=== PATIENT | female | born 1945 | race Caucasian/White ===

== ENCOUNTER 2021-02-14 11:51 | Outpatient (CLI) | payer MEDICARE, BC, SELFPAY ==
--- NOTE | 2021-02-14 12:00 | XR_ITS ---
WS: [id number] KNEE LEFT TECHNIQUE: 3 views of the left knee CLINICAL INFORMATION: KNEE JOINT PAIN, LEFT COMPARISON: None. FINDINGS: Osteopenia. Mild degenerative arthritis medial and lateral joint compartments with mild hypertrophic changes along the joint line. Advanced degenerative narrowing at the patellofemoral articulation. Bon e-on-bone articulation at the patellofemoral articulation. Small suprapatellar effusion. Soft tissue edema. XR/XR knee LT 3V* [id number] IMPRESSION: 1. 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 2. Small suprapatellar effusion with mild soft tissue edema. Kellgren-Cesar Classification: grade 4 (severe): large osteophytes, marked n arrowing of joint space, severe sclerosis and definite deformity of bone ends
== END 2021-02-14 11:52 | disposition home or self-care (01) ==
PROVIDERS: Visit Provider Clinical Nurse Specialist Adult Health
DX: M25.562 Pain in left knee (principal); M25.462 Effusion, left knee; R60.0 Localized edema
CPT/HCPCS: 73562

== ENCOUNTER → 2022-02-27 13:20 | Outpatient (BNVA) | payer MEDICARE, BC, SELFPAY | PROVIDERS: PCP Nurse Practitioner Family; Referring Provider Nurse Practitioner Family; Visit Provider Nurse Practitioner Family | DX: Z96.659 Presence of unspecified artificial knee joint (principal) | CPT/HCPCS: 73560; 73565; 99203; 99204 ==

== ENCOUNTER → 2023-12-04 10:55 | Outpatient (BNVA) | payer MEDICARE, BC, SELFPAY | PROVIDERS: PCP Nurse Practitioner Family; Referring Provider Nurse Practitioner Family; Visit Provider Physician Assistant | DX: M25.561 Pain in right knee (principal); M17.11 Unilateral primary osteoarthritis, right knee; M25.562 Pain in left knee | CPT/HCPCS: 20610; 73560; 73565; 99213; J3301 ==

== ENCOUNTER → 2024-01-29 15:25 | Outpatient (BNVA) | payer MEDICARE, BC, SELFPAY | PROVIDERS: PCP Nurse Practitioner Family; Visit Provider Physician Assistant | DX: M17.11 Unilateral primary osteoarthritis, right knee (principal) | CPT/HCPCS: 99213 ==

== ENCOUNTER → 2025-01-19 14:36 | Outpatient (BNVA) | payer MEDICARE, BC, SELFPAY | PROVIDERS: PCP Nurse Practitioner Family; Visit Provider Nurse Practitioner Family | DX: D22.39 Melanocytic nevi of other parts of face (principal); L81.4 Other melanin hyperpigmentation; L82.0 Inflamed seborrheic keratosis; R20.8 Other disturbances of skin sensation; L53.8 Other specified erythematous conditions; D48.5 Neoplasm of uncertain behavior of skin | CPT/HCPCS: 11102; 17110; 99203 ==

== ENCOUNTER → 2025-02-20 07:55 | Outpatient (BNVA) | payer MEDICARE, BC, SELFPAY | PROVIDERS: PCP Nurse Practitioner Family; Visit Provider Dermatology | DX: C44.41 Basal cell carcinoma of skin of scalp and neck (principal); D48.5 Neoplasm of uncertain behavior of skin | CPT/HCPCS: 11102; 12032; 17311 ==

== ENCOUNTER → 2025-03-09 12:01 | Outpatient (BNVA) | payer MEDICARE, BC, SELFPAY | PROVIDERS: PCP Nurse Practitioner Family; Visit Provider Dermatology | DX: M71.372 Other bursal cyst, left ankle and foot (principal); L81.4 Other melanin hyperpigmentation; Z08 Encounter for follow-up examination after completed treatment for malignant neoplasm; Z85.828 Personal history of other malignant neoplasm of skin; D48.5 Neoplasm of uncertain behavior of skin; L57.0 Actinic keratosis | CPT/HCPCS: 11102; 17000; 99213 ==

== ENCOUNTER 2025-05-06 10:27 | Outpatient (CLI) | payer MEDICARE, BC, SELFPAY ==
--- NOTE | 2025-05-06 10:34 | MR_ITS ---
WS: [id number] MRI CERVICAL SPINE NONCONTRAST HISTORY: CHRONIC NECK PAIN COMPARISON: None available. Technique: Multiplanar, multisequence noncontrast imaging of the cervical spine. Less than 2 mm retrolisthesis of C4 and C5. 2 mm anterolisthesis of C7. No acute fractures or marrow edema. Signal within the cervical cord is normal. Visualized posterior fossa is unremarkable. Craniocervical junction, C1 and C2 relationship, odontoid process and soft tissues are normal. Volume loss involving the cerebellum and visualized brain. Small vessel disease in the milind. C2-C3: Normal. C3-C4: Central disc protrusion. Mild bilateral facet arthritis, LEFT greater than RIGHT. No stenosis. C4-C5: Mild osteophytic ridging and disc bulging and facet arthritis. Mild central and bilateral foraminal stenosis. C5-C6: Diffuse osteophytic ridging with annular disc bulging and a central disc protrusion effacing CSF. Moderate central and mild foraminal stenosis and mild facet arthritis. C6-C7: Mild osteophytic ridging with disc bulging and facet arthritis. Mild central and bilateral foraminal stenosis. C7-T1: No stenosis. Paraspinal soft tissue are normal. MR/MR cervical spin wo con* [id number] IMPRESSION: 1. Multilevel moderate cervical spondylosis. No acute cervical spine fracture. 2. Small central disc protrusion at C3-4 and mild facet arthritis. 3. Mild central and bilateral foraminal stenosis at C4-5 due to osteophytic ri dging and disc disease. 4. Moderate central and mild foraminal stenosis at C5-6. Small central disc pr otrusion contributing to the stenosis. 5. Mild central and bilateral foraminal stenosis at C6-7.
== END 2025-05-06 10:28 | disposition home or self-care (01) ==
LOC: RAD 10:31
PROVIDERS: PCP Nurse Practitioner Family; Visit Provider Nurse Practitioner Family
DX: M47.812 Spondylosis without myelopathy or radiculopathy, cervical region (principal); M50.21 Other cervical disc displacement, high cervical region; M50.321 Other cervical disc degeneration at C4-C5 level; M48.02 Spinal stenosis, cervical region; M50.222 Other cervical disc displacement at C5-C6 level; M50.322 Other cervical disc degeneration at C5-C6 level; M25.78 Osteophyte, vertebrae
CPT/HCPCS: 72141

== ENCOUNTER → 2025-05-26 15:07 | Outpatient (BNVA) | payer MEDICARE, SELFPAY | PROVIDERS: PCP Nurse Practitioner Family; Visit Provider Orthopaedic Surgery | DX: Z98.890 Other specified postprocedural states (principal); Z96.652 Presence of left artificial knee joint | CPT/HCPCS: 73502; 73560; 73565; 99024 ==